=== PATIENT | female | born 1975 | race Caucasian/White ===

== ENCOUNTER 2024-03-22 23:08 | Emergency (ER) | payer BC, SELFPAY ==
[2024-03-22 23:12] VITALS: BP 115/96
--- NOTE | 2024-03-23 00:47 | ED.GENMED ---
History of Present Illness
General
Chief Complaint: Swelling
Source: patient and spouse
Exam Limitations: none
Time Seen by Provider: 03/22/24 23:47
Nursing documentation reviewed up to this point in time: agreed with
Travel History
Have you had any contact with someone who has COVID-19?: No
Do you have any symptoms of coronavirus? Fever > 100 degrees, chills, cough, shortness of breath, sore throat, loss of taste or smell, muscle aches, or headache?: No
History of Present Illness
History of Present Illness:
48-year-old female with a past medical history of irritable bowel syndrome, PCOS, gastric bypass surgery who presents to the emergency department, by for evaluation of swelling and pain in her hands and feet. Patient reports that she has
had allergies and congestion recently. She says that earlier this week she was having fullness in her ears and headache and was seen at urgent care. She was diagnosed with bilateral otitis media and was started on Augmentin and a Medrol Dosepak
which she has been taking since. She says that after that she started to develop some swelling in her hands and her feet. She says this has progressed since then and she is now having some burning pain in her hands. She says she took Motrin
tonight at 9 PM which did not help very much. She decided to come to the emergency room to be assessed. She denies any skin changes or rash, denies pruritus. No swelling in the mouth or tongue. She denies any fevers or chills. Denies any
abdominal cramping, nausea, vomiting. She denies any other complaints today.
Past History
Past History
ED Past Medical History: None
ED Past Surgical History: None
Review of Systems
Review of Systems
All Other Systems: ROS reviewed and negative except as documented in HPI and ROS
Constitutional: Denies fever or chills
EENT: Denies sore throat or runny nose
Respiratory: Denies trouble breathing
Cardiac: Denies chest pain
ABD/GI: Denies abdominal pain
: Denies flank pain
Musculoskeletal: Reports muscle pain (Hand pain) and edema; Denies neck pain or back pain
Skin: Denies itching or rash
Neurological: Denies dizzy
Phy Exam
Physical Exam
Physical Exam:
General: Awake, alert, oriented x3; no acute distress
Head: Normocephalic, atraumatic
Eyes: Conjunctiva normal
Ears: TMs clear bilaterally
Throat: Airway intact, handling secretions, no tongue or lip swelling
Neck: Trachea midline, supple without meningismus
Lungs: Clear to auscultation bilaterally, no wheezing, rales, rhonchi
Heart: Regular rate and rhythm, no murmurs, gallops, or rubs
Neuro: Cranial nerves grossly intact, speech fluid
Extremities: Patient has trace edema in hands and around the ankles bilaterally; she has no skin changes in extremities, no hives; she has good pulses in all extremities
Scores
Heart Failure Risk
Heart Failure Risk Score: Not Applicable
Heart Score for Chest Pain Patients
STEMI patient?: Not applicable
Withdrawal Assessment of Alcohol
Withdrawal Assessment Completed?: Not applicable
Course
Orders/Labs/Results
Orders:
Orders
03/23/24 00:57
Complete Blood Count/With Diff Urgent
Comprehensive Metabolic Panel Urgent
03/23/24 01:23
Potassium Chloride [KCl] 40 meq PO NOW STA
03/23/24 01:25
Urinalysis Reflex To Culture Urgent
Date Specimen was Collected: 03/23/24
Time Specimen was Collected: 00:45
03/23/24 01:41
Acetaminophen [Tylenol] 1,000 mg PO NOW STA
03/23/24 01:53
Tramadol HCl [Ultram] 50 mg PO NOW STA
Abnormal Lab Results
03/23/24
00:57
WBC 4.0 L 10^3/uL
(4.8-10.8)
RBC 3.89 L 10^6/uL
(4.20-5.40)
Hgb 11.5 L g/dL
(12.0-16.0)
Hct 31.4 L %
(37.0-47.0)
MCV 80.7 L fL
(81.0-99.0)
Absolute Lymphs (auto) 0.9 L 10^3/uL
(1.2-3.4)
Eosinophils % 6.2 H %
(0-6)
Sodium 131 L mmol/L
(135-145)
Potassium 3.4 L mmol/L
(3.5-5.1)
Creatinine 0.4 L mg/dL
(0.6-1.0)
Calcium 8.1 L mg/dl
(8.4-10.2)
Total Protein 5.8 L g/dl
(6.3-8.2)
Albumin 3.4 L g/dl
(3.5-5.0)
03/23/24 00:57
03/23/24 00:57
Vital Signs
Initial and Last Documented VS:
Initial Vital Signs
Temp Pulse Resp BP Pulse Ox
36.7 C 83 20 115/96 96
03/22/24 23:12 03/22/24 23:12 03/22/24 23:12 03/22/24 23:12 03/22/24 23:12
Last Documented Vital Signs
Temp Pulse Resp BP Pulse Ox
36.7 C 83 20 115/96 96
03/22/24 23:12 03/22/24 23:12 03/22/24 23:12 03/22/24 23:12 03/22/24 23:12
MDM/Problems Addressed
Differential Diagnosis Includes:
Steroid-induced edema, nephrotic syndrome, osteoarthritis; presentation not consistent with emergent pathology such as DVT given that she has edema in all 4 extremities making these diagnoses;, nothing suggest acute CHF such as shortness of breath,
JVD, hypoxia, and no cardiac history
MDM/Problems Addressed:
48-year-old female with history as above presents for evaluation of swelling in the hands and ankles as well as some burning pain in the hands now since starting a course of steroids to treat sinusitis/ear infection. Her vital signs are normal.
Exam as above. Suspect that this is likely steroid side effect. She has no skin changes to suggest infection. Very unlikely DVT given she has symmetric swelling in all extremities. Will check labs to evaluate renal function and check urine for
proteinuria. Will reassess after the above�can likely be discharged with instructions to discontinue steroid and follow-up with PCP.
Labs reviewed: CBC shows marginal anemia but otherwise unremarkable. CMP shows mild hypokalemia at 3.4�given p.o. repletion. Urinalysis is negative. Suspect that this is likely edema related to glucocorticoids given onset shortly after initiation
of this therapy. Advised her to discontinue steroids. Will give her some short-term pain control. Hesitant to prescribe diuretic for edema given her hypokalemia. Advised range of motion exercises, compression, elevation. Will have her follow-up
with her primary doctor for reassessment�she says she will follow-up Monday. She stable for discharge at this point. Spoke about return precautions all questions answered.
*Pulse Oximetry
Patient hypoxic: no
*Critical Care Note
Total Time (30-74mins, 75-104mins- exclusive of procedures): Not Applicable
Data Reviewed
Source: patient and spouse
ED Attending Note
-
Portions of this chart may have been created with voice recognition software.� Occasional wrong word or��sound alike� substitutions may have occurred due to the inherent limitations of voice recognition software.
Discharge Plan
Departure
Patient Disposition: Home (Routine Discharge)
Date of Disposition: 03/23/24
Time of Disposition: 01:54
Patient with high blood pressure during this ER visit?: No
Discharge Problem:
Edema, Hand pain
Instructions: Lymphedema (DC)
Prescriptions:
New
tramadol 50 mg tablet
50 mg PO Q8H PRN (Reason: Pain) Qty: 10 0RF
No Action
levothyroxine 100 MCG tablet
100 mcg PO DAILY
paroxetine HCl [Paxil] 20 MG tablet
40 mg PO DAILY
dextroamphetamine-amphetamine [Adderall] 20 MG tablet
20 mg PO TID
aripiprazole [Abilify] 5 MG tablet
5 mg PO DAILY
armodafinil [Nuvigil] 250 MG tablet
250 mg PO DAILY
Referrals:
Griselda Rutherford DO [Family Provider] - Follow up in 2-3 days
Activity Restrictions/Additional Instructions:
Thank you for visiting the Emergency Department at [facility].
1. Please schedule a follow up appointment as directed. Call first thing tomorrow morning to make an appointment.
2. If indicated, please take your medications as instructed and indicated on discharge paperwork.
3. If any of your symptoms do not improve, or persist, or become more severe within 6-12 hours, please return to the emergency department for further care.
4. Please return to the emergency department if you develop a headache, neck pain/stiffness, fever greater than 100.4F, chest pain, shortness of breath, persistent nausea, vomiting, slurred speech, difficulty walking, numbness/tingling, weakness,
signs of infection or any other symptoms that are worrisome to you.
Please call [phone] if you have any questions.
Interventions
Interventions:
*Risk Screen - Suicide Last Done: 03/22/24 23:12
*General Assessment Last Done: 03/22/24 23:12
*Neglect/Abuse Screening Last Done: 03/22/24 23:12
ED- Fall Risk Assessment Last Done: 03/23/24 00:39
ED- Cardiac Assessment Last Done: 03/23/24 00:39
ED- Pulmonary Assessment Last Done: 03/23/24 00:39
ED-Skin Assessment Last Done: 03/23/24 00:39
Discharge Date and Time
Print Language: MONGOLIAN
[2024-03-23 01:06] LABS: % Basophils 0.7 % (0-2); % Eosinophils 6.2 % (0-6); % Immature Granulocytes 0.5 % (0-0.5); % Lymphocytes 22.9 % (20.5-51.1); % Monocytes 5.2 % (1.7-9.3); % Neutrophils 64.5 % (42.2-75.2); Absolute Eosinophils 0.3 10^3/uL (0-0.7); Absolute Lymphocytes 0.9 10^3/uL (1.2-3.4); Absolute Monocytes 0.2 10^3/uL (0.1-0.6); Absolute Neutrophils 2.6 10^3/uL (1.4-6.5); Hematocrit 31.4 % (37.0-47.0); Hemoglobin 11.5 g/dL (12.0-16.0); Mean Corp Hgb Conc. 36.6 g/dL (33.0-37.0); Mean Corpuscular Hgb 29.6 pg (27.0-31.0); Mean Corpuscular Volume 80.7 fL (81.0-99.0); Nucleated Red Blood Cells % 0 %; Platelet Count 206 10^3/uL (130-400); Red Blood Cell Count 3.89 10^6/uL (4.20-5.40); Red Cell Dist. Width 12.5 % (11.5-14.5)
[2024-03-23 01:10] VITALS: BMI 50.8
[2024-03-23 01:20] LABS: ALT (SGPT) 32 U/L (0-35); AST (SGOT) 31 U/L (14-36); Albumin 3.4 g/dl (3.5-5.0); Alkaline Phosphatase 85 U/L (38-126); Blood Urea Nitrogen 14 mg/dl (7-17); Calcium 8.1 mg/dl (8.4-10.2); Carbon Dioxide 28 mmol/L (22-30); Chloride 98 mmol/L (98-107); Estimated Creatinine Clearance > 125 ml/min; Glucose 93 mg/dl (70-99); Potassium 3.4 mmol/L (3.5-5.1); Sodium 131 mmol/L (135-145); Total Bilirubin 0.4 mg/dl (0.2-1.3); Total Protein 5.8 g/dl (6.3-8.2); eGFR > 60.00
[2024-03-23 01:34] LABS: Urine Albumin Trace (Neg - Trace); Urine Bilirubin Negative (Negative); Urine Character Clear (Clear); Urine Color Yellow; Urine Glucose Negative (Negative); Urine Ketone Negative (Negative); Urine Leukocyte Negative (Negative); Urine Nitrite Negative (Negative); Urine Occult Blood Negative (Negative); Urine Specific Gravity 1.015 (<1.030); Urine Urobilinogen Negative (Neg - 1+)
[2024-03-23] MEDS: KCL 40 MEQ PO (01:45)
[2024-03-23] MEDS: TYLENOL 1000 MG PO (01:45)
[2024-03-23 01:56] VITALS: BP 140/85
[2024-03-23] MEDS: ULTRAM 50 MG PO (01:59)
== END 2024-03-23 02:00 | disposition home or self-care (01) ==
LOC: EMR 23:08
PROVIDERS: EMERGENCY PHYSICIAN Emergency Medicine; FAMILY PHYSICIAN Family Medicine
DX: R60.0 Localized edema (principal); M79.642 Pain in left hand; M79.641 Pain in right hand; E28.2 Polycystic ovarian syndrome; K58.9 Irritable bowel syndrome, unspecified
CPT/HCPCS: 99283; 80053; 81003; 85025

== ENCOUNTER 2024-03-27 16:22 | Emergency (ER) | payer BC, SELFPAY ==
[2024-03-27 16:26] VITALS: BP 152/95
[2024-03-27 16:31] VITALS: BMI 47.3
[2024-03-27 16:45] LABS: % Basophils 1.6 % (0-2); % Eosinophils 5.1 % (0-6); % Immature Granulocytes 0.2 % (0-0.5); % Lymphocytes 22.3 % (20.5-51.1); % Monocytes 9.6 % (1.7-9.3); % Neutrophils 61.2 % (42.2-75.2); Absolute Basophils 0.1 10^3/uL (0-0.2); Absolute Eosinophils 0.2 10^3/uL (0-0.7); Absolute Monocytes 0.4 10^3/uL (0.1-0.6); Absolute Neutrophils 2.8 10^3/uL (1.4-6.5); Hemoglobin 11.9 g/dL (12.0-16.0); Mean Corp Hgb Conc. 36.1 g/dL (33.0-37.0); Mean Corpuscular Hgb 29.5 pg (27.0-31.0); Mean Corpuscular Volume 81.7 fL (81.0-99.0); Mean Platelet Volume 8.4 fL (7.4-10.4); Nucleated Red Blood Cells % 0 %; Platelet Count 246 10^3/uL (130-400); Red Blood Cell Count 4.04 10^6/uL (4.20-5.40); Red Cell Dist. Width 13.2 % (11.5-14.5); White Blood Cell Count 4.5 10^3/uL (4.8-10.8)
[2024-03-27 17:03] LABS: ALT (SGPT) 32 U/L (0-35); AST (SGOT) 25 U/L (14-36); Albumin 3.6 g/dl (3.5-5.0); Alkaline Phosphatase 106 U/L (38-126); Blood Urea Nitrogen 13 mg/dl (7-17); Calcium 8.5 mg/dl (8.4-10.2); Carbon Dioxide 26 mmol/L (22-30); Chloride 100 mmol/L (98-107); Estimated Creatinine Clearance > 125 ml/min; Glucose 91 mg/dl (70-99); Sodium 132 mmol/L (135-145); Total Bilirubin 0.3 mg/dl (0.2-1.3); Total Protein 6.1 g/dl (6.3-8.2); eGFR > 60.00
[2024-03-27 17:07] LABS: Troponin I < 0.012 ng/ml
--- NOTE | 2024-03-27 19:02 | ED.GENMED ---
History of Present Illness
General
Chief Complaint: Chest Pain
Source: patient
Exam Limitations: none
Time Seen by Provider: 03/27/24 18:34
Travel History
Have you had any contact with someone who has COVID-19?: No
Do you have any symptoms of coronavirus? Fever > 100 degrees, chills, cough, shortness of breath, sore throat, loss of taste or smell, muscle aches, or headache?: No
History of Present Illness
History of Present Illness:
This is a 48 year old female that comes in with c/o chest pain. States that she was here on Monday with hand and leg swelling. States that they felt it was from steroids that she was given by . States that today she has the same thing but know she
has chest pain and she felt it was hard to breath. States that this started yesterday but she didn't say anything. States that it comes and goes but she hasn't been able to sleep in bed as it cause her hands to hurt and she has to get up and move
around. States that she is also always very hot and need the air condition but know she is very cold. States that she feels SOB , nausea and has the chest pain. States that she also has a headache and dizziness. Denies any fever, chills, abd pain,
vomiting, diarrhea, urinary burning.
Past History
Past History
ED Past Medical History: Psychiatric (Anxiety, Depression, ) and Other (Diverticulitis, IBS, PCOS, Anemia, Arthritis)
ED Past Surgical History: Cholecystectomy, Tonsilectomy and Other (Gastric bypass, Hernia, )
Social History
Tobacco: Non-smoker
Alcohol: None
Personal:
Living: with family
Review of Systems
Review of Systems
All Other Systems: ROS reviewed and negative except as documented in HPI and ROS
Constitutional: Reports no symptoms; Denies fever or chills
EENT: Reports no symptoms
Respiratory: Reports trouble breathing; Denies cough
Cardiac: Reports chest pain
ABD/GI: Reports nausea; Denies abdominal pain, vomiting or diarrhea
: Reports no symptoms; Denies dysuria, frequency or urgency
Musculoskeletal: Reports edema (of hands and lower legs)
Skin: Reports no symptoms
Neurological: Reports dizzy and headache
Psychiatric: Reports no symptoms
Phy Exam
General Physical Exam
General Presentation: no apparent distress
General age: appears stated age
General Skin: warm and dry
General Habitus: obese
General Mental: alert
General Hydration: dry mucous membranes
ENT Exam
ENT Exam: TM's normal, pharynx normal and neck supple
Eye Exam
Eye Exam: EOMI
Cardiovascular Exam
Cardiovascular Exam: regular rate/rhythm and normal peripheral pulses
Pulmonary Exam
Pulmonary Exam: lungs clear, no respiratory distress, no rales, chest non tender, no crackles, no rhonchi, no wheezing and no cough
Gastrointestinal Exam
Gastrointestinal Exam: normal bowel sounds, non tender, soft, no organomegaly, no pulsatile mass, non distended and other (Obese)
Musculoskeletal Exam
Musculoskeletal Exam: full ROM and other (Swelling of fingers and hands noted. Hand grasp weak as can't close her fingers. Nonpitting of the lower legs)
Skin Exam
Skin Exam: normal color, warm/dry, no rash and no petechia
Psychiatric Exam
Psychiatric Exam: normal mood/affect
Scores
Heart Score for Chest Pain Patients
STEMI patient?: No
History: Slightly or Non-Suspicious
ECG: Normal
Age: >45 - <65 years
Risk Factors: No Risk Factors
Troponin: </= Normal Limit
Heart Score for Chest Pain Patients: 1
Heart Score Risk: 2.5% MACE over next 6 weeks
Course
Orders/Labs/Results
Orders:
Orders
03/27/24 16:25
Electrocardiogram (*1) Urgent
Reason for Study: Chest Pain
EKG- Treatment ONCE
03/27/24 16:35
Complete Blood Count/With Diff Urgent
Comprehensive Metabolic Panel Urgent
Troponin I Urgent
03/27/24 19:01
CT Chest With Iv Contrast Urgent
Comment:
Reason For Exam: Chest pain, SOB, bilateral arm swelling
03/27/24 19:12
EKG- Treatment ONCE
03/27/24 19:35
Electrocardiogram (*1) Urgent
Reason for Study: Chest Pain
Other Reason for Exam: Repeat with Troponin
Troponin I Urgent
Abnormal Lab Results
03/27/24
16:35
WBC 4.5 L 10^3/uL
(4.8-10.8)
RBC 4.04 L 10^6/uL
(4.20-5.40)
Hgb 11.9 L g/dL
(12.0-16.0)
Hct 33.0 L %
(37.0-47.0)
Absolute Lymphs (auto) 1.0 L 10^3/uL
(1.2-3.4)
Monocytes % 9.6 H %
(1.7-9.3)
Sodium 132 L mmol/L
(135-145)
Total Protein 6.1 L g/dl
(6.3-8.2)
03/27/24 16:35
03/27/24 16:35
WBC very slightly low. H/h slightly low. Sodium slightly low. Total protein slightly low. Troponin <0.012
Vital Signs
Initial and Last Documented VS:
Initial Vital Signs
Temp Pulse Resp BP Pulse Ox
98.4 F 89 18 152/95 98
03/27/24 16:26 03/27/24 16:26 03/27/24 16:26 03/27/24 16:26 03/27/24 16:26
Last Documented Vital Signs
Temp Pulse Resp BP Pulse Ox
98.4 F 81 19 147/78 98
03/27/24 16:26 03/27/24 19:45 03/27/24 19:45 03/27/24 19:16 03/27/24 19:16
MDM/Problems Addressed
Differential Diagnosis Includes:
PE, aortic aneurysm, Dependent edema.
MDM/Problems Addressed:
This is a 48 year old female that comes in with c/o chest pain, and SOB. States that she has swelling of the hand and lower legs that she was seen here on Monday for. States that this is not getting any better and she hasn't been able to sleep in
bed as her hands hurt and she has to get up and move. States that she started yesterday with chest pain and SOB.
Will get labs, CT chest
Repeat ECG: rate 73, NSR, left axis, Normal QRS, negative for ischemia. Checked by Dr. Jackson
Patient rang her jewell and the aid went in. Patient states that she wants to go home. Patient was up and dressed. Into see patient. Explained that with her symptoms getting the CT of the chest looks at the Aorta and other vessels to make sure there
is nothing causing her swelling. Patient continues to refuse and signed out AMA.
Chronic conditions affecting care:
NA
Acute Exacerbation and/or Progression of Chronic Illness:
NA
*Pulse Oximetry
Patient hypoxic: no
*EKG
Interpreted by ED Provider?: Yes
Heart Rate: 89
Rate: normal
Rhythm: sinus
[place]: left axis deviation
Interval: normal interval
QRS Pattern: normal QRS
Ischemia: no ischemia
*[employer] Interpretation
Rate: normal
Heart Rate: 78
Rhythm: sinus
*Critical Care Note
Total Time (30-74mins, 75-104mins- exclusive of procedures): Not Applicable
ED Attending Note
-
Portions of this chart may have been created with voice recognition software.� Occasional wrong word or��sound alike� substitutions may have occurred due to the inherent limitations of voice recognition software.
Discharge Plan
Departure
Patient Disposition: Other
Date of Disposition: 03/27/24
Time of Disposition: 20:10
Patient with high blood pressure during this ER visit?: Yes
Condition: Good
Covid-19: Not Applicable
Prescriptions:
No Action
levothyroxine 100 MCG tablet
100 mcg PO DAILY
paroxetine HCl [Paxil] 20 MG tablet
40 mg PO DAILY
dextroamphetamine-amphetamine [Adderall] 20 MG tablet
20 mg PO TID
aripiprazole [Abilify] 5 MG tablet
5 mg PO DAILY
armodafinil [Nuvigil] 250 MG tablet
250 mg PO DAILY
tramadol 50 mg tablet
50 mg PO Q8H PRN (Reason: Pain) Qty: 10 0RF
Interventions
Interventions:
*Risk Screen - Suicide Last Done: 03/27/24 16:26
*General Assessment Last Done: 03/27/24 18:56
*Neglect/Abuse Screening Last Done: 03/27/24 16:26
ED- Fall Risk Assessment Last Done: 03/27/24 16:26
*ED COVID-19 Vaccine History Last Done: 03/27/24 18:56
ED- Cardiac Assessment Last Done: 03/27/24 19:17
Discharge Date and Time
Discharge Date/Time: 03/27/24 20:12
Print Language: WELSH
[2024-03-27 19:16] VITALS: BP 147/78
[2024-03-27 20:06] LABS: Troponin I < 0.012 ng/ml
== END 2024-03-27 20:12 | disposition other institution (70) ==
LOC: EMR 16:22
PROVIDERS: Clinical Nurse Specialist Family Health; Emergency Medicine; EMERGENCY PHYSICIAN Emergency Medicine; FAMILY PHYSICIAN Family Medicine
DX: R07.9 Chest pain, unspecified (principal); R11.0 Nausea; R06.02 Shortness of breath; R51.9 Headache, unspecified; R42 Dizziness and giddiness; R60.0 Localized edema; Z53.29 Procedure and treatment not carried out because of patient's decision for other reasons; R03.0 Elevated blood-pressure reading, without diagnosis of hypertension; F41.9 Anxiety disorder, unspecified; F32.A Depression, unspecified; K57.92 Diverticulitis of intestine, part unspecified, without perforation or abscess without bleeding; K58.9 Irritable bowel syndrome, unspecified; E28.2 Polycystic ovarian syndrome; M19.90 Unspecified osteoarthritis, unspecified site; D64.9 Anemia, unspecified; Z90.49 Acquired absence of other specified parts of digestive tract; Z98.84 Bariatric surgery status
CPT/HCPCS: 99284; 80053; 84484; 85025; 93005